=== PATIENT | male | born 1945 | race Caucasian/White ===

== ENCOUNTER → 2017-03-25 | Outpatient (CLI) | payer MEDICARE | END | disposition home or self-care (01) | LOC: LABWHC1 11:02 | PROVIDERS: ATTEND Urology | DX: R97.20 Elevated prostate specific antigen [PSA] (principal) | CPT/HCPCS: 36415; 84153 ==

== ENCOUNTER → 2018-05-22 | Outpatient (CLI) | payer MEDICARE | LOC: LABWHC1 13:16 | PROVIDERS: ATTEND Urology | DX: R97.20 Elevated prostate specific antigen [PSA] (principal) | CPT/HCPCS: 36415; 84153 ==

== ENCOUNTER 2022-09-07 18:15 | Emergency (ER) | payer MEDICARE ==
[2022-09-07] MEDS ORDERED: SODIUM CHLORIDE 0.9% 1,000 ML IV ONE (18:22)
[2022-09-07 18:32] LABS: Basophils % (A) 0 %; Eosinophils % (A) 0 %; HCT 42.1 % (39.0-53.0); Lymphocytes # (A) 0.9 k/uL (1.0-4.8); Lymphocytes % (A) 5 %; MCH 29.9 pg (25.0-35.0); MCHC 33.2 g/dL (31.0-37.0); Mean Platelet Volume 9.8; Monocytes # (A) 0.8 k/uL (0-1.0); Monocytes % (A) 5 %; Neutrophils # (A) 15.7 k/uL (1.3-7.7); Neutrophils % (A) 89 %; Platelet Count 137 k/uL (150-450); RBC 4.68 m/uL (4.30-5.90); RDW 12.9 % (11.5-15.5); WBC 17.6 k/uL (3.8-10.6)
--- NOTE | 2022-09-07 18:32 | XR ---
EXAMINATION TYPE: XR chest 1V portable DATE OF EXAM: 09/07/2022 6:26 PM COMPARISON: None TECHNIQUE: XR chest 1V portable Portable AP radiograph of the chest. CLINICAL INDICATION:Male, 77 years old with history of altered mental status; FINDINGS: Lungs/Pleura: There is no evidence of pleural effusion, focal consolidation, or pneumothorax. Pulmonary vascularity: Unremarkable. Heart/mediastinum: Cardiomediastinal silhouette is unremarkable. Musculoskeletal: No acute osseous pathology. IMPRESSION: No acute cardiopulmonary disease/process.
[2022-09-07 18:43] VITALS: RESP 18; TEMP 96.8
[2022-09-07 18:43] LABS: ALT 20 U/L (4-49); AST 30 U/L (17-59); Acetaminophen <10.0 ug/mL; African American GFR (CKD) >90 (>60 ml/min/1.73 sqM); Albumin 3.9 g/dL (3.5-5.0); Alcohol <10 mg/dL; Alkaline Phosphatase 73 U/L (38-126); Anion Gap 7 mmol/L; Blood Urea Nitrogen 22 mg/dL (9-20); Calcium 8.2 mg/dL (8.4-10.2); Carbon Dioxide 27 mmol/L (22-30); Chloride 103 mmol/L (98-107); Glucose 233 mg/dL (74-99); Non-African American GFR(CKD) 83 (>60 ml/min/1.73 sqM); Potassium 5.3 mmol/L (3.5-5.1); Salicylate 13.7 mg/dL; Sodium 137 mmol/L (137-145); Total Bilirubin 0.5 mg/dL (0.2-1.3); Total Protein 6.7 g/dL (6.3-8.2)
--- NOTE | 2022-09-07 18:57 | ED ---
Altered Mental Status HPI - General Stated Complaint: AMS Time Seen by Provider: 09/07/22 18:15 - History of Present Illness Initial Comments: 77 year old male with past medical history of hyperlipidemia presents the emergency department with altered mental status. EMS and provide the history. Patient was out in his garage building a model train. last saw him around 1 PM. She went out to the garage around 5:30 PM and found him down on the ground. He did have visible head trauma. states that he was his normal self prior. Not on any blood thinners. He is not complaining of a headache. Patient has visible bruising above his right eye as well as a skin tear on his left elbow. EMS found to have the patient with a GCS of 10. He would withdraw to pain and open his eyes spontaneously. The remainder of the HPI is limited because the patient's current condition - Related Data Previous Rx's Medication Instructions Recorded Cyclobenzaprine [Flexeril] 10 mg PO TID PRN #15 tab 03/18/15 Hydrocodone/Acetaminophen [[place] 1 each PO Q6HR PRN #20 tab 03/18/15 5-325] Ibuprofen [Motrin] 600 mg PO Q6HR PRN #40 day 03/21/15 dexAMETHasone [Decadron] 0.75 mg PO DIRECTED #12 tablet 03/21/15 Allergies Allergy/AdvReac Type Severity Reaction Status Date / Time No Known Allergies Allergy Verified 09/07/22 18:42 Review of Systems ROS Statement: Those systems with pertinent positive or pertinent negative responses have been documented in the HPI. ROS Other: All systems not noted in ROS Statement are negative. Past Medical History Past Medical History: No Reported History History of Any Multi-Drug Resistant Organisms: None Reported Past Surgical History: Adenoidectomy, Tonsillectomy Past Psychological History: No Psychological Hx Reported Past Alcohol Use History: Occasional Past Drug Use History: None Reported General Exam Limitations: altered mental status General appearance: obtunded Head exam: Present: other (bruising above right eye) Eye exam: Present: other (3 mm non reactive) Respiratory exam: Present: normal lung sounds bilaterally. Absent: respiratory distress, wheezes, rales, rhonchi, stridor Cardiovascular Exam: Present: regular rate, normal rhythm, normal heart sounds. Absent: systolic murmur, diastolic murmur, rubs, gallop, clicks Neurological exam: Present: other (moves extremities spontanously - contracted upper extremities - does not follow commands - withdraws to pain) Skin exam: Present: warm, dry, intact, normal color, abrasion (skin tear left arm). Absent: rash Course Vital Signs 09/07/22 09/07/22 09/07/22 18:15 19:02 19:03 Temperature 96.8 F L Pulse Rate 76 Respiratory 18 Rate Blood Pressure 183/84 O2 Sat by Pulse 95 Oximetry Fraction of 100 100 Inspired Oxygen (FIO2) 09/07/22 20:09 Temperature Pulse Rate 59 L Respiratory 18 Rate Blood Pressure 146/73 O2 Sat by Pulse 100 Oximetry Fraction of Inspired Oxygen (FIO2) - Reevaluation(s) Reevaluation #1: Calling for transfer 09/07/22 19:10 Reevaluation #2: [facility] accepts. Calling EMS for priority one trauma transfer 09/07/22 19:32 Procedures - Intubation Sedative: Etomidate Mg Given: 20 Paralytic: Rocuronium Mg Given: 50 Laryngoscope: fiber optic video scope Size: 4 ET Tube Size: 7.5 ET Tube Uncuffed: No Tube Secured Depth (cm): 26 Tube Secured Location: lips Tube Placement Confirmation: visualized tube passing through cords, equal breath sounds bilaterally, no breath sounds over epigastrium, confirmation by capnometry Patient Tolerated Procedure: well, no complications Medical Decision Making - Medical Decision Making On arrival patient is promptly placed into trauma 2. He is C-collared and b ackboarded. Airway is patent. He has bilateral breath sounds. He has 2+ upper and lower external pulses. Disability is assessed. Patient does localize to pain and opens his eyes spontaneously. GCS is 10. Portable chest x-rays performed which demonstrates no acute findings. Patient is immediately taken to CT where is identified that the patient has a subarachnoid and subdural hemorrhage with 4 mm midline shift. He is placed back in the trauma bay and GCS has decreased to 5 - he no longer is opening his eyes. Decision is made to intubate due to low GCS. Patient is given 50 mg of maya and 20 mg of etomidate. 7.5 cm tube placed 26 cm at gum. Post intubation chest xray performed demonstrat es tube 4 cm above neville. He is placed on propofol. HOB elevated to 30 degrees. I did order cardene as patient does have some elevate bp which normalizes without bp meds. Spoke with Dr. Good at [facility] who accepts transfer. vent settings - 400 tidal volume 16 rr 100% fio2 5 peep Was pt. sent in by a medical professional or institution (ZAYRA Barreto, JUNIOR DATABASE ADMINISTRATOR, urgent care, hospital, or group home...) When possible be specific @ -No Did you speak to anyone other than the patient for history (EMS, parent, family, police, friend...)? What history was obtained from this source @ - Did you review nursing and triage notes (agree or disagree)? Why? @ -I reviewed and agree with nursing and triage notes Were old charts reviewed (outside hosp., previous admission, EMS record, old EKG, old radiological studies, urgent care reports/EKG's, group home records)? Report findings @ -No Differential Diagnosis (chest pain, altered mental status, abdominal pain women, abdominal pain men, vaginal bleeding, weakness, fever, dyspnea, syncope, headache, dizziness, GI bleed, back pain, seizure, CVA, palpatations, mental health, musculoskeletal)? @ -head trauma, assault, aneurysm rupture, SAH, SDH, CVA EKG interpreted by me (3pts min.). @ -No X-rays interpreted by me (1pt min.). @ -Yes CT interpreted by me (1pt min.). @ -Yes U/S interpreted by me (1pt. min.). @ -None done What testing was considered but not performed or refused? (CT, X-rays, U/S, labs)? Why? @ -None What meds were considered but not given or refused? Why? @ -None Did you discuss the management of the patient with other professionals (professionals i.e. ZAYRA Barreto, JUNIOR DATABASE ADMINISTRATOR, lab, RT, psych nurse, social services analyst, gear keeper, teacher, corporate security officer, casework specialist)? Give summary @ -Trauma surgeon at [facility] Was smoking cessation discussed for >3mins.? @ -No Was critical care preformed (if so, how long)? @ -Yes, 45 minutes Were there social determinants of health that impacted care today? How? (Homelessness, low income, unemployed, alcoholism, drug addiction, transpor tation, low edu. Level, literacy, decrease access to med. care, m[facility], rehab)? @ -No Was there de-escalation of care discussed even if they declined (Discuss DNR or withdrawal of care, Hospice)? DNR status @ -Yes, patient remained full code What co-morbidities impacted this encounter? (DM, HTN, Smoking, COPD, CAD, Cancer, CVA, ARF, Chemo, Hep., AIDS, mental health diagnosis, sleep apnea, morbid obesity)? @ -None Was patient admitted / discharged? Hospital course, mention meds given and route, prescriptions, significant lab abnormalities, going to OR and other pertinent info. @ - Transferred Undiagnosed new problem with uncertain prognosis? @ -yes Drug Therapy requiring intensive monitoring for toxicity (Heparin, Nitro, Insulin, Cardizem)? @ -No Were any procedures done? @ -Intubation Diagnosis/symptom? @ -concussion with loc, skull fracture, SAH, SDH, fall, vent dependance Acute, or Chronic, or Acute on Chronic? @ -acute Uncomplicated (without systemic symptoms) or Complicated (systemic symptoms)? @ -complicated Side effects of treatment? @ -No Exacerbation, Progression, or Severe Exacerbation? @ -No Poses a threat to life or bodily function? How? (Chest pain, [place], [place], pneumonia, PE, COPD, DKA, ARF, appy, cholecystitis, CVA, Diverticulitis, Homicidal, Suicidal, threat to staff... and all critical care pts) @ -Yes - Lab Data Result diagrams: 09/07/22 18:20 09/07/22 18:20 Lab Results 09/07/22 09/07/22 09/07/22 Range/Units 18:20 18:20 18:20 WBC 17.6 H (3.8-10.6) k/uL RBC 4.68 (4.30-5.90) m/uL Hgb 14.0 (13.0-17.5) gm/dL Hct 42.1 (39.0-53.0) % MCV 90.0 (80.0-100.0) fL MCH 29.9 (25.0-35.0) pg MCHC 33.2 (31.0-37.0) g/dL RDW 12.9 (11.5-15.5) % Plt Count 137 L (150-450) k/uL MPV 9.8 Neutrophils % 89 % Lymphocytes % 5 % Monocytes % 5 % Eosinophils % 0 % Basophils % 0 % Neutrophils # 15.7 H (1.3-7.7) k/uL Lymphocytes # 0.9 L (1.0-4.8) k/uL Monocytes # 0.8 (0-1.0) k/uL Eosinophils # 0.0 (0-0.7) k/uL Basophils # 0.0 (0-0.2) k/uL PT 11.0 (9.0-12.0) sec INR 1.0 (<1.2) APTT 22.1 (22.0-30.0) sec Sodium 137 (137-145) mmol/L Potassium 5.3 H (3.5-5.1) mmol/L Chloride 103 (98-107) mmol/L Carbon Dioxide 27 (22-30) mmol/L Anion Gap 7 mmol/L BUN 22 H (9-20) mg/dL Creatinine 0.84 (0.66-1.25) mg/dL Est GFR (CKD-EPI)AfAm >90 (>60 ml/min/1.73 sqM) Est GFR (CKD-EPI)NonAf 83 (>60 ml/min/1.73 sqM) Glucose 233 H (74-99) mg/dL Calcium 8.2 L (8.4-10.2) mg/dL Total Bilirubin 0.5 (0.2-1.3) mg/dL AST 30 (17-59) U/L ALT 20 (4-49) U/L Alkaline Phosphatase 73 (38-126) U/L Ammonia (<30) umol/L Creatine Kinase (55-170) U/L Troponin I (0.000-0.034) ng/mL Total Protein 6.7 (6.3-8.2) g/dL Albumin 3.9 (3.5-5.0) g/dL TSH 1.750 (0.465-4.680) mIU/L Urine Color Urine Appearance (Clear) Urine pH (5.0-8.0) Ur Specific [place] (1.001-1.035) Urine Protein (Negative) Urine Glucose (UA) (Negative) Urine Ketones (Negative) Urine Blood (Negative) Urine Nitrite (Negative) Urine Bilirubin (Negative) Urine Urobilinogen (<2.0) mg/dL Ur Leukocyte Esterase (Negative) Urine RBC (0-5) /hpf Urine WBC (0-5) /hpf Urine Bacteria (None) /hpf Urine Mucus (None) /hpf Salicylates 13.7 mg/dL Urine Opiates Screen (NotDetected) Ur Oxycodone Screen (NotDetected) Urine Methadone Screen (NotDetected) Ur Propoxyphene Screen (NotDetected) Acetaminophen <10.0 ug/mL Ur Barbiturates Screen (NotDetected) U Tricyclic Antidepress (NotDetected) Ur Phencyclidine Scrn (NotDetected) Ur Amphetamines Screen (NotDetected) U Methamphetamines Scrn (NotDetected) U Benzodiazepines Scrn (NotDetected) Urine Cocaine Screen (NotDetected) U Marijuana (THC) Screen (NotDetected) Serum Alcohol <10 mg/dL 09/07/22 09/07/22 09/07/22 Range/Units 18:20 18:20 18:59 WBC (3.8-10.6) k/uL RBC (4.30-5.90) m/uL Hgb (13.0-17.5) gm/dL Hct (39.0-53.0) % MCV (80.0-100.0) fL MCH (25.0-35.0) pg MCHC (31.0-37.0) g/dL RDW (11.5-15.5) % Plt Count (150-450) k/uL MPV Neutrophils % % Lymphocytes % % Monocytes % % Eosinophils % % Basophils % % Neutrophils # (1.3-7.7) k/uL Lymphocytes # (1.0-4.8) k/uL Monocytes # (0-1.0) k/uL Eosinophils # (0-0.7) k/uL Basophils # (0-0.2) k/uL PT (9.0-12.0) sec INR (<1.2) APTT (22.0-30.0) sec Sodium (137-145) mmol/L Potassium (3.5-5.1) mmol/L Chloride (98-107) mmol/L Carbon Dioxide (22-30) mmol/L Anion Gap mmol/L BUN (9-20) mg/dL Creatinine (0.66-1.25) mg/dL Est GFR (CKD-EPI)AfAm (>60 ml/min/1.73 sqM) Est GFR (CKD-EPI)NonAf (>60 ml/min/1.73 sqM) Glucose (74-99) mg/dL Calcium (8.4-10.2) mg/dL Total Bilirubin (0.2-1.3) mg/dL AST (17-59) U/L ALT (4-49) U/L Alkaline Phosphatase (38-126) U/L Ammonia <9 (<30) umol/L Creatine Kinase 103 (55-170) U/L Troponin I <0.012 (0.000-0.034) ng/mL Total Protein (6.3-8.2) g/dL Albumin (3.5-5.0) g/dL TSH (0.465-4.680) mIU/L Urine Color Urine Appearance (Clear) Urine pH (5.0-8.0) Ur Specific [place] (1.001-1.035) Urine Protein (Negative) Urine Glucose (UA) (Negative) Urine Ketones (Negative) Urine Blood (Negative) Urine Nitrite (Negative) Urine Bilirubin (Negative) Urine Urobilinogen (<2.0) mg/dL Ur Leukocyte Esterase (Negative) Urine RBC (0-5) /hpf Urine WBC (0-5) /hpf Urine Bacteria (None) /hpf Urine Mucus (None) /hpf Salicylates mg/dL Urine Opiates Screen (NotDetected) Ur Oxycodone Screen (NotDetected) Urine Methadone Screen (NotDetected) Ur Propoxyphene Screen (NotDetected) Acetaminophen ug/mL Ur Barbiturates Screen (NotDetected) U Tricyclic Antidepress (NotDetected) Ur Phencyclidine Scrn (NotDetected) Ur Amphetamines Screen (NotDetected) U Methamphetamines Scrn (NotDetected) U Benzodiazepines Scrn (NotDetected) Urine Cocaine Screen (NotDetected) U Marijuana (THC) Screen (NotDetected) Serum Alcohol mg/dL 09/07/22 Range/Units 19:50 WBC (3.8-10.6) k/uL RBC (4.30-5.90) m/uL Hgb (13.0-17.5) gm/dL Hct (39.0-53.0) % MCV (80.0-100.0) fL MCH (25.0-35.0) pg MCHC (31.0-37.0) g/dL RDW (11.5-15.5) % Plt Count (150-450) k/uL MPV Neutrophils % % Lymphocytes % % Monocytes % % Eosinophils % % Basophils % % Neutrophils # (1.3-7.7) k/uL Lymphocytes # (1.0-4.8) k/uL Monocytes # (0-1.0) k/uL Eosinophils # (0-0.7) k/uL Basophils # (0-0.2) k/uL PT (9.0-12.0) sec INR (<1.2) APTT (22.0-30.0) sec Sodium (137-145) mmol/L Potassium (3.5-5.1) mmol/L Chloride (98-107) mmol/L Carbon Dioxide (22-30) mmol/L Anion Gap mmol/L BUN (9-20) mg/dL Creatinine (0.66-1.25) mg/dL Est GFR (CKD-EPI)AfAm (>60 ml/min/1.73 sqM) Est GFR (CKD-EPI)NonAf (>60 ml/min/1.73 sqM) Glucose (74-99) mg/dL Calcium (8.4-10.2) mg/dL Total Bilirubin (0.2-1.3) mg/dL AST (17-59) U/L ALT (4-49) U/L Alkaline Phosphatase (38-126) U/L Ammonia (<30) umol/L Creatine Kinase (55-170) U/L Troponin I (0.000-0.034) ng/mL Total Protein (6.3-8.2) g/dL Albumin (3.5-5.0) g/dL TSH (0.465-4.680) mIU/L Urine Color Colorless Urine Appearance Clear (Clear) Urine pH 7.0 (5.0-8.0) Ur Specific [place] 1.028 (1.001-1.035) Urine Protein Trace H (Negative) Urine Glucose (UA) 4+ H (Negative) Urine Ketones 2+ H (Negative) Urine Blood Small H (Negative) Urine Nitrite Positive (Negative) Urine Bilirubin Negative (Negative) Urine Urobilinogen <2.0 (<2.0) mg/dL Ur Leukocyte Esterase Negative (Negative) Urine RBC 4 (0-5) /hpf Urine WBC 2 (0-5) /hpf Urine Bacteria Rare H (None) /hpf Urine Mucus Rare H (None) /hpf Salicylates mg/dL Urine Opiates Screen Not Detected (NotDetected) Ur Oxycodone Screen Not Detected (NotDetected) Urine Methadone Screen Not Detected (NotDetected) Ur Propoxyphene Screen Not Detected (NotDetected) Acetaminophen ug/mL Ur Barbiturates Screen Not Detected (NotDetected) U Tricyclic Antidepress Not Detected (NotDetected) Ur Phencyclidine Scrn Not Detected (NotDetected) Ur Amphetamines Screen Not Detected (NotDetected) U Methamphetamines Scrn Not Detected (NotDetected) U Benzodiazepines Scrn Not Detected (NotDetected) Urine Cocaine Screen Not Detected (NotDetected) U Marijuana (THC) Screen Detected H (NotDetected) Serum Alcohol mg/dL - EKG Data EKG Comments: EKG demonstrates sinus rhythm with a rate of 83. HI interval 137. QRS 110. QTC of 419. No acute ST segment elevations or depression Critical Care Time Critical Care Time: Yes Critical Care Time: 45 minutes Disposition Clinical Impression: Skull fracture, SAH (subarachnoid hemorrhage), SDH (subdural hematoma) Disposition: OTHER INSTITUTION NOT DEFINED Condition: Critical Is patient prescribed a controlled substance at d/c from ED?: No Referrals: Adriano Mcfarland DO [Primary Care Provider] - 1-2 days Time of Disposition: 19:35 - Out of Hospital Transfer - Req. Specs Out of Hospital Transfer - Requested Specifics: Other Emergency Center ([facility])
[2022-09-07] MEDS ORDERED: niCARdipine 20 MG in SODIUM CHLORIDE 0.9% 192 ML IV ONE (18:58)
[2022-09-07 19:08] LABS: Partial Thromboplastin Time 22.1 sec (22.0-30.0)
--- NOTE | 2022-09-07 19:11 | CT ---
EXAMINATION TYPE: CT angio head neck CT DLP: 606.1 mGycm, Automated exposure control for dose reduction was used. DATE OF EXAM: 09/07/2022 7:00 PM COMPARISON: CT head same day CLINICAL INDICATION:Male, 77 years old with history of ams, ams, unresponsive TECHNIQUE: Axially acquired helical CT angiogram of the head and neck was obtained with contrast. Axi al images are supplemented with 3D reconstructions which [facility] NASCET criteria used. Contrast used:100 mL of Isovue 370 with IV Contrast, Oral contrast used: None. FINDINGS: CTA HEAD: No evidence of acute intracranial hemorrhage, mass effect, or midline shift. The ventricles, sulci, a nd cisterns are unremarkable. The visualized portions of the internal carotid arteries, middle cerebral arteries, anterior cerebral arteries, and posterior cerebral arteries are patent. The basilar and vertebral arteries are patent. No evidence for intracranial extravasation. Intracranial calcifications of the internal carotid arteries. Bilaterally aphakia. Nondisplaced skull fracture that wraps around the skull through the bilateral parietal bones extendin g to the temporal bones bilaterally. CTA NECK: Motion artifact limits evaluation. Right Carotid System: The common carotid artery and external carotid artery are patent. The carotid bifurcation demonstrate s no evidence of hemodynamically significant stenosis. The remaining portions of the internal carotid artery demonstrate normal size without significant narrowing. Left Carotid System: The common carotid artery and external carotid artery are patent. The carotid bifurcation demonstrate s calcified atherosclerotic plaque with less than 50% stenosis. The remaining portions of the interna l carotid artery demonstrate normal size without significant narrowing. Vertebral arteries are patent without evidence hemodynamically significant stenosis. There is a three-vessel aortic arch. The origins of the great vessels are patent. No evidence of hemo dynamically significant stenosis. IMPRESSION: 1. No evidence of dissection of the cervical internal carotid arteries or vertebral arteries or any e vidence of significant stenosis at the carotid bifurcations. 2. No evidence of intracranial high-grade stenosis or intracranial aneurysm. 3. No evidence of active extravasation. 4. Nondisplaced skull fracture with associated scalp hematoma, subdural hemorrhage and subarachnoid h emorrhage.
--- NOTE | 2022-09-07 19:12 | CT ---
EXAMINATION TYPE: CT brain cspine wo con CT DLP: 1608.1 mGycm, Automated exposure control for dose reduction was used. DATE OF EXAM: 09/07/2022 6:36 PM COMPARISON: CTA same day. CLINICAL INDICATION:Male, 77 years old with history of ams; ams, found unresponsive TECHNIQUE: Brain: Multiple axial CT images of the brain were obtained without IV contrast. Cspine: Axial CT images from the skull base to the inferior aspect of T2 we obtained without intraven ous contrast. Coronal and sagittal reformatted images were also reviewed. FINDINGS: Brain: Extra-axial spaces: High density blood products are seen predominantly involving the right frontal lo be sulci and also involving the right temporal lobe sulci. There is high density blood products over the convexity of the right frontal and temporal lobes compatible with subdural hemorrhage measuring u p to 5 mm in thickness over the right frontal lobe. Cavum septum pellucidum. . Ventricular system: Within normal limits, no blood products visualized in the ventricular system at t his time. Cerebral parenchyma: Possible intraparenchymal hemorrhage involving the right temporal lobe. The gra y-white junction is well differentiated. Cerebellum: Unremarkable. Mass effect: Leftward subfalcine herniation up to 4 mm. Intracranial vasculature: unremarkable Soft tissues: There is a right-sided scalp hematoma measuring 6.7 x 8 x 9.2 cm. Calvarium/osseous structures: Nondisplaced skull fracture that wraps around the skull through the luanne ateral parietal bones extending to the temporal bones bilaterally. Paranasal sinuses and mastoid air cells: Mild scattered mucosal thickening and or secretions. Visualized orbits: Orbital contents are intact. Cervical spine: Fracture: None. Osseous structures: Multilevel degenerative disc disease changes with endplate spurring and disc oste ophyte complex's. Vertebral alignment: Within normal limits. Spinal canal/Neural Foramina: Disc osteophyte complexes at C5-C6 and C6-C7 with at least mild spinal canal stenosis. No evidence for significant neural foraminal stenosis. Neck soft tissues: Prevertebral soft tissues are within normal limits. Other: The airway is patent. The lung apices are clear. IMPRESSION: 1. Subarachnoid hemorrhage along the right frontal and temporal lobe with subdural hemorrhage also p resent. 2. Leftward 4 mm subfalcine herniation. 3. Suspected intraparenchymal hemorrhage involving the right temporal lobe. 4. Nondisplaced skull fracture with scalp hematoma. 5. No evidence of cervical spine fracture. 6. Mild to moderate multilevel degenerative disc disease. Findings communicated to Dr. Cari Ryan DO on 09/07/2022 6:[address] Liborio Jones.
[2022-09-07] MEDS ORDERED: TRANEXAMIC ACID IN NACL,ISO-OS 1,000 MG in SALINE 1 100ML.BAG IV STA (19:26)
--- NOTE | 2022-09-07 19:31 | XR ---
EXAMINATION TYPE: XR chest 1V portable DATE OF EXAM: 09/07/2022 7:08 PM COMPARISON: Chest radiographs from 09/07/2022 TECHNIQUE: XR chest 1V portable Portable AP radiograph of the chest. CLINICAL INDICATION:Male, 77 years old with history of line placement; FINDINGS: Lungs/Pleura: Low lung volumes are present. There is no evidence of pleural effusion, focal consolida tion, or pneumothorax. Pulmonary vascularity: Unremarkable. Heart/mediastinum: Cardiomediastinal silhouette is unremarkable. Musculoskeletal: No acute osseous pathology. Other findings: None Lines/Tubes: Endotracheal tube with distal tip 4.2 cm above the [place]. Nasogastric tube with its distal tip and side-port projecting under the diaphragm and projecting over the gastric lumen. IMPRESSION: Nasogastric and endotracheal tubes in appropriate position. Low lung volumes with atelectasis versus pulmonary vascular congestion correlate with serum BNP.
[2022-09-07 20:06] LABS: Appearance,Urine Clear (Clear); Bacteria,Urine Rare /hpf; Bilirubin,Urine Negative (Negative); Blood,Urine Small (Negative); Color,Urine Colorless; Glucose,Urine (UA) 4+ (Negative); Leukocyte Esterase,Urine Negative (Negative); Mucus,Urine Rare /hpf; Nitrite,Urine Positive (Negative); Protein,Urine Trace (Negative); RBC,Urine 4 /hpf (0-5); Specific Gravity,Urine 1.028 (1.001-1.035); Urobilinogen,Urine <2.0 mg/dL (<2.0); WBC,Urine 2 /hpf (0-5)
[2022-09-07 20:09] LABS: Amphetamine Screen,Urine Not Detected (NotDetected); Barbiturate Screen,Urine Not Detected (NotDetected); Benzodiazepines Screen,Urine Not Detected (NotDetected); Cocaine Screen,Urine Not Detected (NotDetected); Ketones,Urine 2+ (Negative); Methadone Screen, Urine Not Detected (NotDetected); Opiate Screen,Urine Not Detected (NotDetected); Oxycodone Screen, Urine Not Detected (NotDetected); Phencyclidine Screen,Urine Not Detected (NotDetected); Tricyclic Antidepressant,Urine Not Detected (NotDetected); Urn Cannabinoid Scrn Detected (NotDetected)
[2022-09-07 20:10] VITALS: BP 146/73; PULSE 59
== END 2022-09-07 20:30 | disposition other institution (70) ==
LOC: EC 18:15
DX: S02.91XA Unspecified fracture of skull, initial encounter for closed fracture (principal); S06.5XAA Traumatic subdural hemorrhage with loss of consciousness status unknown, initial encounter; S06.6XAA Traumatic subarachnoid hemorrhage with loss of consciousness status unknown, initial encounter; R40.2420 Glasgow coma scale score 9-12, unspecified time; W17.89XA Other fall from one level to another, initial encounter; Y92.513 Shop (commercial) as the place of occurrence of the external cause
CPT/HCPCS: 36415; 93005; 80053; 84443; 82140; 82550; 84484; 85025; 85610; 85730; 81001; 80306; 80143; 80179; 71045; 72125; 70496; 70450; 70498; 99291; 96365; 96366 ×22; 96375; 31500; G0480; J2704; Q9967; 80320